=== PATIENT | male | born 1995 | race Hispanic/Latino ===

== ENCOUNTER 2018-01-15 10:45 | Emergency (ER) | payer BC ==
[2018-01-15 10:51] VITALS: BP 135/86
[2018-01-15 11:10] LABS: Basophils # (Auto) 0.1 K/mm3 (0.0-0.1); Basophils % (Auto) 1.5 % (0.0-1.8); Eosinophils # (Auto) 0.4 K/mm3 (0.0-0.4); Eosinophils % (Auto) 4.7 % (0.0-4.3); Hemoglobin 14.6 gm/dl (11.8-15.2); Lymphocytes # (Auto) 2.6 K/mm3 (1.2-5.4); Mean Corpuscular HGB Conc 34 % (32-34); Mean Corpuscular Hemoglobin 30 pg (28-32); Mean Corpuscular Volume 89 fl (84-94); Monocytes # (Auto) 0.5 K/mm3 (0.0-0.8); Monocytes % (Auto) 6.2 % (0.0-7.3); Platelet Count 292 K/mm3 (140-440); Red Blood Count 4.83 M/mm3 (3.65-5.03); Red Cell Distribution Width 13.4 % (13.2-15.2)
[2018-01-15 11:22] LABS: Alanine Aminotransferase 30 units/L (7-56); Albumin 4.5 g/dL (3.9-5); BUN/Creatinine Ratio 20; Blood Urea Nitrogen 16 mg/dL (9-20); Calcium 9.2 mg/dL (8.4-10.2); Hemolysis Index 3
--- NOTE | 2018-01-15 12:33 | Emergency Department Report ---
ED Abdominal Pain HPI - General Chief Complaint: Abdominal Pain Stated Complaint: ABD PAIN Time Seen by Provider: 01/15/18 12:21 Source: patient Mode of arrival: Ambulatory Limitations: No Limitations - History of Present Illness Initial Comments: 22-year-old male presents with complaint of intermittent right upper quadrant pain for one week. Denies fevers chills nausea or vomiting. Patient is awake alert and oriented 3 fully lucid. Denies any abdominal or chest trauma. Denies any falls or hitting any objects with his chest or abdomen. Denies dysuria or hematuria or increased urinary frequency. Denies any association with eating. Patient states he sometimes gets epigastric discomfort. Patient is pointing towards his right upper quadrant states he feels as though it might be underneath his rib. Denies any history of PE/DVT recent travel any lower extremity swelling recent surgery or hormone use. MD Complaint: abdominal pain Onset/Timin -: days(s) Location: RUQ Radiation: RUQ Migration to: RUQ Severity: moderate Severity scale (0 -10): 5 Quality: aching Consistency: constant Improves With: nothing - Related Data Previous Rx's Medication Instructions Recorded Last Taken Type Acetaminophen [Acetaminophen TAB] 500 mg PO Q6HR PRN #30 tablet 01/15/18 Unknown Rx Bismuth Subsalicylate 10 ml PO QID PRN #1 udc 01/15/18 Unknown Rx [Pepto-Bismol] Famotidine [Pepcid] 20 mg PO BID PRN #30 tablet 01/15/18 Unknown Rx Omeprazole 20 mg PO QDAY #30 capsule. 01/15/18 Unknown Rx Allergies Allergy/AdvReac Type Severity Reaction Status Date / Time No Known Allergies Allergy Unverified 01/15/18 10:51 ED Review of Systems ROS: Stated complaint: ABD PAIN Other details as noted in HPI Constitutional: denies: chills, fever Eyes: denies: eye pain, eye discharge, vision change ENT: denies: ear pain, throat pain Respiratory: denies: cough, shortness of breath, wheezing Cardiovascular: denies: chest pain, palpitations Endocrine: no symptoms reported Gastrointestinal: abdominal pain. denies: nausea, diarrhea Genitourinary: denies: urgency, dysuria Musculoskeletal: denies: back pain, joint swelling, arthralgia Skin: denies: rash, lesions Neurological: denies: headache, weakness, paresthesias Psychiatric: denies: anxiety, depression Hematological/Lymphatic: denies: easy bleeding, easy bruising ED Past Medical Hx - Past Medical History Previous Medical History?: No - Surgical History Past Surgical History?: No - Social History Smoking Status: Current Every Day Smoker Substance Use Type: None - Medications Home Medications: Home Medications Medication Instructions Recorded Confirmed Last Taken Type Acetaminophen [Acetaminophen TAB] 500 mg PO Q6HR PRN #30 tablet 01/15/18 Unknown Rx Bismuth Subsalicylate 10 ml PO QID PRN #1 udc 01/15/18 Unknown Rx [Pepto-Bismol] Famotidine [Pepcid] 20 mg PO BID PRN #30 tablet 01/15/18 Unknown Rx Omeprazole 20 mg PO QDAY #30 capsule. 01/15/18 Unknown Rx ED Physical Exam - General Limitations: No Limitations General appearance: alert, in no apparent distress - Head Head exam: Present: atraumatic, normocephalic - Eye Eye exam: Present: normal appearance - ENT ENT exam: Present: mucous membranes moist - Neck Neck exam: Present: normal inspection - Respiratory Respiratory exam: Present: normal lung sounds bilaterally. Absent: respiratory distress - Cardiovascular Cardiovascular Exam: Present: regular rate, normal rhythm. Absent: systolic murmur, diastolic murmur, rubs, gallop - GI/Abdominal GI/Abdominal exam: Present: tenderness (some right upper quadrant pain on deep palpation), normal bowel sounds - Rectal Rectal exam: Present: deferred - Extremities Exam Extremities exam: Present: normal inspection - Back Exam Back exam: Present: normal inspection - Neurological Exam Neurological exam: Present: alert, oriented X3 - Psychiatric Psychiatric exam: Present: normal affect, normal mood - Skin Skin exam: Present: warm, dry, intact, normal color. Absent: rash ED Course Vital Signs 01/15/18 10:48 Temperature 97.9 F Pulse Rate 79 Respiratory 18 Rate Blood Pressure 135/86 O2 Sat by Pulse 99 Oximetry ED Medical Decision Making - Lab Data Result diagrams: 01/15/18 10:53 01/15/18 10:53 - Medical Decision Making A/P: Abdominal pain, possible GERD 1-omeprazole, Pepcid when necessary 2-follow-up with primary care and gastroenterology 3-labs unremarkable, x-ray and ultrasound unremarkable 4- vital signs stable before discharge. Patient tolerating by mouth without difficulty. Critical care attestation.: If time is entered above; I have spent that time in minutes in the direct care of this critically ill patient, excluding procedure time. ED Disposition Clinical Impression: Right upper quadrant abdominal pain Disposition: - TO HOME OR SELFCARE Is pt being admited?: No Does the pt Need Aspirin: No Condition: Stable Instructions: Gastroesophageal Reflux Disease (ED), Diet for Ulcers and Gastritis (ED) Prescriptions: Acetaminophen [Acetaminophen TAB] 500 mg PO Q6HR PRN #30 tablet PRN Reason: Pain Bismuth Subsalicylate [Pepto-Bismol] 10 ml PO QID PRN #1 udc PRN Reason: Indigestion Famotidine [Pepcid] 20 mg PO BID PRN #30 tablet PRN Reason: Pain Omeprazole 20 mg PO QDAY #30 capsule. Referrals: PRIMARY CARE [Primary Care Provider] - 3-5 Days [facility] [Provider Group] - 3-5 Days [facility] [Outside] - 3-5 Days [facility] [Provider Group] - 3-5 Days Forms: Work/School Release Form(ED) Time of Disposition: 14:30
--- NOTE | 2018-01-15 12:34 | Emergency Department Report ---
Blank Doc - Documentation Documentation: I've had a [id number] with this patient being taken care of by a aJrrett Rueda. Patient is having right upper quadrant abdominal pain. Patient will undergo a right upper quadrant ultrasound to rule out gallstones.
[2018-01-15 12:53] LABS: Bilirubin,Urine NEG (Negative); Blood,Urine NEG (Negative); Color,Urine Yellow (Yellow); Protein,Urine <15 mg/dL mg/dL (Negative); Urobilinogen,Urine < 2.0 mg/dL (<2.0); WBC,Urine < 1.0 /HPF (0.0-6.0)
--- NOTE | 2018-01-15 13:44 | XRay Report ---
ROUTINE CHEST, TWO VIEWS: HISTORY: chest pain. The trachea, heart, mediastinal contour, lung foy and bony thorax are unremarkable. IMPRESSION: Unremarkable chest x-ray.
--- NOTE | 2018-01-15 14:31 | Ultrasound Report ---
ULTRASOUND ABDOMEN LIMITED: TECHNIQUE: Transabdominal ultrasound with color Doppler interrogation. HISTORY: right upper quadrant abdominal pain. COMPARISON: none. FINDINGS: LIVER: Normal. BILIARY SYSTEM: Normal. PANCREAS: Normal. RIGHT KIDNEY: Normal. PROXIMAL AORTA: Normal. ASCITES: None. IMPRESSION: Unremarkable exam.
== END 2018-01-15 14:50 | disposition home or self-care (01) ==
LOC: ED 10:45
DX: R10.11 Right upper quadrant pain (principal); F17.200 Nicotine dependence, unspecified, uncomplicated
CPT/HCPCS: 36415; 71046; 76705; 80053; 81001; 83690; 85025